=== PATIENT | male | born 1960 | race Caucasian/White ===

== ENCOUNTER 2018-02-12 07:06 | Emergency (ER) | payer OTHER ==
[~2018-02-12] VITALS: Ht 167.6 cm; Wt 76.6 kg
[~2018-02-12 07:06] MED LIST: AMLO-150 PO; AMOX-291 PO; AMOX1TAB64 PO; BUPR100T11 PO; CYCL-259 PO; GABA-827 PO; HYDR50TA13 PO; MELO15TA24 PO; MELO7.5T31 PO; METH500T7 PO; METO25TA35 PO; NICO-486 TD; OMEP-110 PO; PRED5TAB PO; RISP1TAB45 PO; RISP2TAB35 PO; RISP4TAB2 PO; SERT50TA5 PO; SILD100T PO; TRAM50TA2 PO; TRAZ150T62 PO
[2018-02-12] MEDS ORDERED: ALBUTEROL/IPRATROPIUM 2.5MG/0.5MG, 3 ML NPPB ONE (07:30)
[2018-02-12] MEDS ORDERED: ALBUTEROL/IPRATROPIUM 2.5MG/0.5MG, 3 ML ONE (07:45)
[2018-02-12 08:17] VITALS: BP 141/90
== END 2018-02-12 08:19 | disposition home or self-care (01) ==
LOC: ED 07:33
DX: J44.1 Chronic obstructive pulmonary disease with (acute) exacerbation (principal); J06.9 Acute upper respiratory infection, unspecified
CPT/HCPCS: 71046; 93005; 94640; 99283; J7512; J7620

== ENCOUNTER 2018-03-20 19:07 | Emergency (ER) | payer OTHER ==
[~2018-03-20] VITALS: Ht 167.6 cm; Wt 70.0 kg
[~2018-03-20 19:07] MED LIST changes: +SERT50TA28 PO; -SERT50TA5 PO
--- NOTE | 2018-03-20 19:15 | NUR ---
PT PRESENTS TO ED C/O NVDx3 DAYS. STATES "HOT AND COLD" INTERMITTENTx1 WEEK. UNKNOWN FEVER AT HOME. DENIES TAKING MEDICATION. STATES PRODUCTIVE COUGH AT HOME W/ YELLOW PHLEGM. CP WORSENING W/ COUGH "THROUGH MY WHOLE CHEST." SHARP PAIN PRESENT. DENIES CARDIAC HX. SPOUSE STATES "HE ATE RAW PORK 2 DAYS AGO HE PROBABLY HAS FOOD POISONING." ALL MONITORING APPLIED. PT MILDLY TACHYCARDIC. CALL LIGHT WITHIN REACH.
[2018-03-20] MEDS ORDERED: ACETAMINOPHEN 325 MG TABLET ONE (19:46)
[2018-03-20] MEDS ORDERED: ACETAMINOPHEN 325 MG TABLET PO ONE (20:00)
[2018-03-20] MEDS ORDERED: SODIUM CHLORIDE FLUSH 10ML SYR IVF ONE (20:00)
[2018-03-20 20:10] VITALS: BP 118/70
[2018-03-20 20:14] LABS: BASOPHILS # (AUTO) 0.06 x10^3/uL (0-0.1); BASOPHILS % (AUTO) 1 % (0-1); EOSINOPHILS # (AUTO) 0.15 x10^3/uL (0-0.4); EOSINOPHILS % (AUTO) 1 % (1-7); LYMPHOCYTES # (AUTO) 1.77 x10^3/uL (1-3.4); LYMPHOCYTES % (AUTO) 14 % (22-44); MD NO; MEAN CORPUSCULAR HEMOGLOBIN 31.1 pg (27.5-34.5); MEAN CORPUSCULAR HGB CONC 34.2 g/dL (33.2-36.2); MEAN PLATELET VOLUME 8.3 fL (7.4-10.4); MONOCYTES # (AUTO) 0.92 x10^3/uL (0.2-0.8); MONOCYTES % (AUTO) 7 % (2-9); NEUTROPHILS # (AUTO) 10.03 x10^3/uL (1.8-6.8); NEUTROPHILS % (AUTO) 78 % (42-75); PLATELET COUNT 291 x10^3/uL (130-400); RED BLOOD COUNT 5.33 x10^6/uL (4.38-5.82); RED CELL DISTRIBUTION WIDTH 13.3 % (9.4-14.8)
[2018-03-20 20:22] LABS: ALBUMIN 3.7 g/dL (3.4-5.0); ANION GAP 8 mmol/L (5-15); CALCIUM 9.1 mg/dL (8.5-10.1); CHLORIDE 113 mmol/L (98-107)
--- NOTE | 2018-03-20 20:25 | NUR ---
NO IMMEDIATE NEEDS FROM PT. CALL LIGHT WITHIN REACH. AWAITING INFLUENZA RESULTS.
[2018-03-20 20:28] LABS: ALANINE AMINOTRANSFERASE 32 U/L (12-78); ALKALINE PHOSPHATASE 75 U/L (45-117); BILIRUBIN,TOTAL 0.9 mg/dL (0.2-1.0); CREATININE 1.03 mg/dL (0.7-1.3); TOTAL PROTEIN 7.6 g/dL (6.4-8.2); TROPONIN I < 0.015 ng/mL (0.000-0.045)
[2018-03-20 20:28] LABS: RAPID INFLUENZA A Negative (Negative); RAPID INFLUENZA B Negative (Negative)
--- NOTE | 2018-03-20 21:02 | NUR ---
PT STATES WANTING TO LEAVE NOW. "I THINK MY IS CHEATING ON ME. I DONT CARE ABOUT ANYTHING ELSE RIGHT NOW." MD AWARE. PT EDUCATED, PT STILL WANTING TO LEAVE AMA. AMA SIGNED AND PLACED ON CHART.
== END 2018-03-20 21:03 | disposition home or self-care (01) ==
LOC: ED 19:30
DX: J06.9 Acute upper respiratory infection, unspecified (principal); F17.200 Nicotine dependence, unspecified, uncomplicated
CPT/HCPCS: 36415; 71046; 80053; 84484; 85025; 87400; 93005; 99284

== ENCOUNTER 2018-04-21 10:29 | Emergency (ER) | payer MEDICARE ==
[~2018-04-21] VITALS: Ht 167.6 cm; Wt 73.9 kg
[2018-04-21 10:49] VITALS: BP 116/77
== END 2018-04-21 11:41 | disposition left against medical advice (07) ==
LOC: ED 11:35
DX: F15.10 Other stimulant abuse, uncomplicated (principal)
CPT/HCPCS: 99283

== ENCOUNTER 2020-10-13 20:20 | Inpatient (IN) | payer MEDICARE, OTHER ==
[~2020-10-13] VITALS: Ht 167.6 cm; Wt 78.5 kg
[~2020-10-13 20:20] MED LIST changes: -CYCL-259 PO; +CYCL10TA2 PO; -HYDR50TA13 PO; +HYDR50TA99 PO; +METH-639 PO; -METH500T7 PO; -RISP4TAB2 PO; +RISP4TAB66 PO
[2020-10-13] MEDS ORDERED: SODIUM CHLORIDE FLUSH 10ML SYR IVF ONE (20:30)
--- NOTE | 2020-10-13 20:32 | NUR ---
Pt brought in by EMS from the [facility] c/o acute onset shortness of breath, near syncope, and etoh. Pt celebrating his birthday, states he drank close to a bottle of liqour. Became short of breath, used rescue albuterol inhaler w/ no relief. Also became diaphoretic, denied chest pain. Has a hx of COPD non oxygen depenadant. Pt alert and oriented x4 upon arrival. Placed on 2L by EMS for comfort. Pt has RA sats 88% upon arrival. Placed back on 2L by RN for comfort. Pt vitals stable. 18G LAC established by EMS. No meds or other interventions performed. Pt fully vaccinated against COVID.
--- NOTE | 2020-10-13 21:01 | NUR ---
pt had labs drawn, and ambulated steady to restroom for urine sample
[2020-10-13 21:10] LABS: BASOPHILS % (AUTO) 0 % (0-1); EOSINOPHILS % (AUTO) 1 % (1-7); LYMPHOCYTES % (AUTO) 15 % (22-44); MEAN CORPUSCULAR HEMOGLOBIN 30.6 pg (27.5-34.5); MEAN CORPUSCULAR HGB CONC 33.5 g/dL (33.2-36.2); MEAN PLATELET VOLUME 8.2 fL (7.4-10.4); MONOCYTES % (AUTO) 7 % (2-9); NEUTROPHILS % (AUTO) 78 % (42-75); PLATELET COUNT 296 x10^3/uL (130-400); RED CELL DISTRIBUTION WIDTH 13.3 % (9.4-14.8)
--- NOTE | 2020-10-13 21:10 | NUR ---
PT BECAME SOB WHILE AMBULATING TO RESTROOM, STATES UNABLE TO GIVE URINE SAMPLE AT THIS TIME
[2020-10-13 21:19] LABS: ANION GAP 4 mmol/L (5-15); CALCIUM 8.8 mg/dL (8.5-10.1); CHLORIDE 107 mmol/L (98-107); CREATININE 1.21 mg/dL (0.7-1.3)
[2020-10-13 21:20] LABS: ALANINE AMINOTRANSFERASE 42 U/L (12-78); ALBUMIN 3.1 g/dL (3.4-5.0)
[2020-10-13] MEDS ORDERED: ALBUTEROL/IPRATROPIUM 2.5MG/0.5MG, 3 ML ONE (21:20)
[2020-10-13 21:24] LABS: ALKALINE PHOSPHATASE 72 U/L (45-117); BILIRUBIN,TOTAL 0.4 mg/dL (0.2-1.0); TOTAL PROTEIN 7.2 g/dL (6.4-8.2); TROPONIN I < 0.015 ng/mL (0.000-0.045)
[2020-10-13] MEDS ORDERED: OMNIPAQUE 350 MG/ML, 75ML BOTTLE ONE (23:23)
--- NOTE | 2020-10-13 23:30 | NUR ---
PT ATTEMPTED TO LEAVE AMA EARLIER. PT WAS WALKING AROUND HALLS AND STATED HE NEEDS TO GO. IV TAKEN OUT BY OTHER RN BUT PT MADE HIS WAY BACK TO THE ROOM. EDUCAED PT ON UNCETAINTY OF DISPO AND IMPORTANCE OF WAITING FOR CTA RESULTS. PT AGREEABLE TO STAY AT THIS TIME. NEW PIV PLACED. PT RESTING IN [facility], AWAITING CTA RESULTS
[2020-10-14] MEDS ORDERED: FUROSEMIDE 20 MG/2 ML IV ONE
[2020-10-14] MEDS ORDERED: FUROSEMIDE 20 MG/2 ML ONE (00:27)
[2020-10-14] MEDS ORDERED: DEXTROSE 4 GM TAB.CHEW PO PRN (00:30)
[2020-10-14] MEDS ORDERED: OXYcodone IR 5MG TABLET PO PRN (00:30)
[2020-10-14] MEDS ORDERED: LORazepam 2 MG/ML, 1ML IV PRN ×2 (00:30)
[2020-10-14] MEDS ORDERED: LORazepam 0.5MG TABLET PO PRN (00:30)
[2020-10-14] MEDS ORDERED: POLYETHYLENE GLYCOL 17 GM PACKET PO PRN (00:30)
[2020-10-14] MEDS ORDERED: THIAMINE 200 MG in DEXTROSE 5% 50 ML IVPB ONE (00:30)
[2020-10-14] MEDS ORDERED: ACETAMINOPHEN 325 MG TABLET PO PRN (00:30)
[2020-10-14] MEDS ORDERED: GLUCAGON 1 MG IM PRN (00:30)
[2020-10-14] MEDS ORDERED: ONDANSETRON 2MG/ML, 2ML IVPush PRN (00:30)
[2020-10-14] MEDS ORDERED: LORazepam 1MG TABLET PO PRN (00:30)
[2020-10-14] MEDS ORDERED: MELATONIN 5 MG TABLET PO PRN (00:30)
[2020-10-14] MEDS ORDERED: ENOXAPARIN 40 MG/0.4 ML SQ SCH (00:30)
[2020-10-14] MEDS ORDERED: LABETALOL 5MG/ML, 20ML IVPush PRN (00:30)
[2020-10-14] MEDS ORDERED: DEXTROSE 50%, 50ML SYRINGE IVPush PRN (00:30)
--- NOTE | 2020-10-14 01:05 | NUR ---
report recieved from Alyssa BAÑUELOS
--- NOTE | 2020-10-14 01:48 | NUR ---
report given to juan augustine
[2020-10-14 02:11] LABS: TROPONIN I < 0.015 ng/mL (0.000-0.045)
[2020-10-14 02:40] LABS: FREE T4 (FREE THYROXINE) 0.92 ng/dL (0.76-1.46)
[2020-10-14 03:08] VITALS: BP 116/76
[2020-10-14] MEDS ORDERED: METF10007 PO (04:15)
[2020-10-14] MEDS ORDERED: ZOLP5TAB6 PO (04:15)
[2020-10-14 04:33] LABS: MICROSCOPIC NOT IND
[2020-10-14 04:46] LABS: AMPHETAMINE SCREEN, URINE Positive (Negative); BARBITURATE SCREEN, URINE Negative (Negative); BENZODIAZEPINE SCREEN, URINE Negative (Negative); CANNABINOID SCREEN, URINE Positive (Negative); COCAINE SCREEN, URINE Negative (Negative); METHADONE SCREEN, URINE Negative (Negative); OPIATE SCREEN, URINE Negative (Negative)
[2020-10-14] MEDS: INSULIN LISPRO 100 UNITS/ML, PEN SQ-INSULIN SCH ×4 (05:18→16:00)
[2020-10-14 06:33] LABS: BASOPHILS % (AUTO) 0 % (0-1); EOSINOPHILS % (AUTO) 1 % (1-7); LYMPHOCYTES % (AUTO) 20 % (22-44); MEAN CORPUSCULAR HEMOGLOBIN 31.4 pg (27.5-34.5); MEAN CORPUSCULAR HGB CONC 34.9 g/dL (33.2-36.2); MEAN PLATELET VOLUME 8.5 fL (7.4-10.4); MONOCYTES % (AUTO) 8 % (2-9); NEUTROPHILS % (AUTO) 71 % (42-75); PLATELET COUNT 275 x10^3/uL (130-400); RED BLOOD COUNT 4.51 x10^6/uL (4.38-5.82); RED CELL DISTRIBUTION WIDTH 13.2 % (9.4-14.8)
[2020-10-14 06:37] LABS: ANION GAP 5 mmol/L (5-15); CALCIUM 8.5 mg/dL (8.5-10.1); CHLORIDE 105 mmol/L (98-107); CREATININE 0.99 mg/dL (0.7-1.3)
[2020-10-14 06:41] LABS: TROPONIN I < 0.015 ng/mL (0.000-0.045)
[2020-10-14 08:09] VITALS: BP 118/79
[2020-10-14] MEDS ORDERED: MULTIVITAMINS/MINERALS TABLET PO SCH (09:00)
[2020-10-14] MEDS ORDERED: SODIUM CHLORIDE FLUSH 10ML SYR IVF SCH (09:00)
[2020-10-14] MEDS ORDERED: FUROSEMIDE 40 MG/4 ML IV ONE (11:30)
[2020-10-14] MEDS ORDERED: LORazepam 2 MG/ML, 1ML IVPush PRN (11:30)
[2020-10-14] MEDS ORDERED: POTASSIUM CHLORIDE 20 MEQ TAB.ER.PRT PO ONE (11:30)
[2020-10-14 12:17] VITALS: BP 108/68
[2020-10-14 12:20] VITALS: BP 108/68
[2020-10-14 16:35] VITALS: BP 116/81
[2020-10-14] MEDS ORDERED: POTASSIUM CHLORIDE 20 MEQ TAB.ER.PRT PO SCH (17:00)
== END 2020-10-14 16:55 | disposition home or self-care (01) | DRG 291 ==
LOC: ED 20:59 → EDIP 10-14 00:13 → 4WST 10-14 02:14
PROVIDERS: ADMIT Internal Medicine; ATTEND Internal Medicine
DX: I11.0 Hypertensive heart disease with heart failure (principal); G92 Toxic encephalopathy; J96.01 Acute respiratory failure with hypoxia; I50.43 Acute on chronic combined systolic (congestive) and diastolic (congestive) heart failure; D72.829 Elevated white blood cell count, unspecified; E03.9 Hypothyroidism, unspecified; F10.10 Alcohol abuse, uncomplicated; F17.210 Nicotine dependence, cigarettes, uncomplicated; F12.90 Cannabis use, unspecified, uncomplicated; F15.90 Other stimulant use, unspecified, uncomplicated; F20.9 Schizophrenia, unspecified; F31.9 Bipolar disorder, unspecified; I25.10 Atherosclerotic heart disease of native coronary artery without angina pectoris; J44.9 Chronic obstructive pulmonary disease, unspecified; E11.9 Type 2 diabetes mellitus without complications; Z20.822 Contact with and (suspected) exposure to COVID-19; Z91.19 Patient's noncompliance with other medical treatment and regimen
CPT/HCPCS: 36415; 71045; 71275; 80048; 80053; 80307; 80320; 81003; 82728; 82962; 83036; 83615; 83880; 84439; 84443; 84484; 85025; 85379; 93005; 93306; 93356; 96374; 99291; G0378; J1650; J1940; J3411; Q9967; U0005; G0480; J1815; U0003

== ENCOUNTER 2020-11-14 09:55 | Inpatient (IN) | payer OTHER ==
[~2020-11-14] VITALS: Ht 167.6 cm; Wt 73.3 kg
[~2020-11-14 09:55] MED LIST changes: +METF10007 PO; +ZOLP5TAB6 PO
[2020-11-14] MEDS ORDERED: SODIUM CHLORIDE FLUSH 10ML SYR IVF ONE (10:00)
[2020-11-14] MEDS ORDERED: ASPIRIN 81 MG TABLET CHEW PO ONE (10:00)
[2020-11-14] MEDS ORDERED: NITROGLYCERIN SINGLE TAB 0.4 MG SL PRN (10:00)
--- NOTE | 2020-11-14 10:14 | NUR ---
PT BIB EMS, C/O CP AND DIFFICULTY BREATHING SINCE THIS MORNING AT 7AM. EMS GAVE 1 SL TAB NITRO THAT PT STATES DID HELP WITH THE CP. PT HAS HX OF CHF. PT ON 4LPM O2 VIA NC. PT SITTING IN GURNEY, RESPONDS APPROPRIATELY BUT IS DELAYED. PT CONNECTED TO ALL MONITORS. EKG COMPLETED IN ROOM AND MD BEDSIDE FOR ASSESSMENT.
[2020-11-14] MEDS ORDERED: ASPIRIN 81 MG TABLET CHEW ONE (10:20)
[2020-11-14] MEDS ORDERED: PLEASE ENTER HEIGHT AND WEIGHT MC SCH (10:30)
[2020-11-14 10:37] LABS: ALBUMIN 3.2 g/dL (3.4-5.0); ANION GAP 4 mmol/L (5-15); CALCIUM 8.8 mg/dL (8.5-10.1); CHLORIDE 108 mmol/L (98-107)
[2020-11-14 10:42] LABS: CREATININE 1.26 mg/dL (0.7-1.3); TROPONIN I 0.089 ng/mL (0.000-0.045)
[2020-11-14 10:43] LABS: BASOPHILS % (AUTO) 1 % (0-1); EOSINOPHILS % (AUTO) 1 % (1-7); LYMPHOCYTES % (AUTO) 11 % (22-44); MEAN CORPUSCULAR HEMOGLOBIN 30.9 pg (27.5-34.5); MEAN CORPUSCULAR HGB CONC 33.9 g/dL (33.2-36.2); MONOCYTES % (AUTO) 5 % (2-9); NEUTROPHILS % (AUTO) 83 % (42-75); PLATELET COUNT 247 x10^3/uL (130-400); RED BLOOD COUNT 4.53 x10^6/uL (4.38-5.82); RED CELL DISTRIBUTION WIDTH 13.3 % (9.4-14.8)
--- NOTE | 2020-11-14 11:39 | NUR ---
PT RESTING ON BED COMFORTABLY. BP HAS COME DOWN 10 POINTS. PT USING EXTRA EFFORT FOR RESPERATIONS.
--- NOTE | 2020-11-14 11:45 | NUR ---
REPOSITIONED PT AND REASSESSED V/S BP IMPROVED TO 97/65. BACK TO NEAR BASELINE.
[2020-11-14] MEDS ORDERED: SODIUM CHLORIDE FLUSH 10ML SYR IVF PRN (12:00)
--- NOTE | 2020-11-14 12:16 | NUR ---
THROUGHPUT RN: PT WITH [facility] [employer] [place] [employer]. [facility] CALLED, SPOKE WITH CARLOS IN TRANSFER CENTER, DENIED PT "WE ARE NOT CONTRACTED WITH THAT INSURANCE." [facility] CALLED, SPOKE TO [facility] WHO DENIED PT "WE DO NOT HAVE ANY BEDS TO TAKE THIS PT." CARD TELE BED REQUESTED PER MD ORDER. ESTHETIC DERMATOLOGIST AND ADMITTING NOTIFIED/AWARE AT TIME OF ADMIT. PSN FORM COMPLETED AND FAXED TO [facility] PER REQUEST.
[2020-11-14] MEDS ORDERED: BACLOFEN 10 MG TABLET PO PRN (12:30)
[2020-11-14] MEDS ORDERED: BUTALB/APAP/CAFFEINE 50MG/325MG/40MG PO PRN ×2 (12:30)
[2020-11-14] MEDS ORDERED: ONDANSETRON 2MG/ML, 2ML IVPush PRN (12:30)
[2020-11-14] MEDS ORDERED: ACETAMINOPHEN 325 MG TABLET PO PRN (12:30)
[2020-11-14] MEDS ORDERED: ONDANSETRON ODT 4 MG PO PRN (12:30)
[2020-11-14] MEDS ORDERED: ENOXAPARIN 40 MG/0.4 ML ONE (12:43)
[2020-11-14] MEDS ORDERED: FUROSEMIDE 40 MG/4 ML ONE (12:44)
[2020-11-14] MEDS: ENOXAPARIN 40 MG/0.4 ML SQ SCH (12:47)
[2020-11-14] MEDS: FUROSEMIDE 40 MG/4 ML IV SCH ×2 (12:47→17:30)
--- NOTE | 2020-11-14 12:54 | NUR ---
MEDICATED PT PER ORDERS. PT RESTING ON GURNEY. V/S STABLE AT THIS TIME. PROVIDED PT WITH URINAL.
--- NOTE | 2020-11-14 12:59 | NUR ---
WHILE IN PT ROOM, HE BECAME SOB AND COULD NOT CATCH HIS BREATH, COMPLAINED OF CHEST PAIN. PT WAS ABLE TO CATCH HIS BREATH BUT IS NOW PALE AND DIAPHORETIC. PT IS VERY LETHARGIC AND FALLS ASLEEP RAPIDLY. V/S STABLE AT THIS TIME.
--- NOTE | 2020-11-14 13:54 | NUR ---
PT GOT OUT OF BED. TOOK OFF MONITORING EQUIPMENT AND O2. PT EDUCATED ON PROPER USE OF CALL TO LIGHT AND TO USE IT IF HE NEEDS HELP WITH ANYTHING. PT MOVED TO HOSPITAL BED. CARDIAC DIET TRAY ORDERED
[2020-11-14] MEDS ORDERED: NITROGLYCERIN SINGLE TAB 0.4 MG SL ONE (14:12)
--- NOTE | 2020-11-14 14:20 | NUR ---
PT HAD ANOTHER EPISODE OF SEVERE CHEST PAIN AND SOB. CALMED PT AND COACHED ON BREATHING. CALLD AND LEFT MESSAGE WITH MD TO CONSIDER ADDITIONAL OPTIONS. PT MEDICATED WITH NITRO PER ORDER. PT RESTING ON GURNEY.
--- NOTE | 2020-11-14 14:20 | NUR ---
PT CAME OF CHEST PAIN. PT DIAPHORETIC. MEDICATED PER APR. CALLED TO MAKE AWARE - LEFT VOICEMAIL.
--- NOTE | 2020-11-14 14:27 | NUR ---
PT REPORTS HIS CP HAS IMPROVED AFTER NITRO
[2020-11-14 17:16] VITALS: BP 103/75
[2020-11-14 18:00] LABS: TROPONIN I 0.117 ng/mL (0.000-0.045)
[2020-11-14] MEDS ORDERED: CHLORDIAZEPOXIDE 25 MG CAPSULE PO PRN (18:00)
[2020-11-14] MEDS ORDERED: CHLORDIAZEPOXIDE 10 MG CAPSULE PO PRN (18:00)
[2020-11-14] MEDS ORDERED: LORazepam 2 MG/ML, 1ML IV PRN ×4 (18:00)
[2020-11-14 20:00] VITALS: BP 109/74
[2020-11-14] MEDS ORDERED: MELATONIN 5 MG TABLET PO SCH (21:00)
[2020-11-14] MEDS: LORazepam 2 MG/ML, 1ML IV PRN (21:18)
[2020-11-14] MEDS ORDERED: NITROGLYCERIN 0.4 MG/SPRAY SL PRN (21:30)
[2020-11-14 23:17] LABS: TROPONIN I 0.094 ng/mL (0.000-0.045)
[2020-11-15 02:00] VITALS: BP 114/77
[2020-11-15 05:39] LABS: BASOPHILS % (AUTO) 1 % (0-1); EOSINOPHILS % (AUTO) 2 % (1-7); LYMPHOCYTES % (AUTO) 21 % (22-44); MEAN CORPUSCULAR HGB CONC 34.3 g/dL (33.2-36.2); MEAN PLATELET VOLUME 8.4 fL (7.4-10.4); MONOCYTES % (AUTO) 8 % (2-9); NEUTROPHILS % (AUTO) 69 % (42-75); PLATELET COUNT 224 x10^3/uL (130-400); RED BLOOD COUNT 4.78 x10^6/uL (4.38-5.82); RED CELL DISTRIBUTION WIDTH 13.3 % (9.4-14.8)
[2020-11-15 05:42] LABS: ALANINE AMINOTRANSFERASE 83 U/L (12-78); ANION GAP 6 mmol/L (5-15); CALCIUM 8.8 mg/dL (8.5-10.1); CHLORIDE 106 mmol/L (98-107); CREATININE 1.05 mg/dL (0.7-1.3)
[2020-11-15 05:46] LABS: ALKALINE PHOSPHATASE 85 U/L (45-117); TOTAL PROTEIN 6.9 g/dL (6.4-8.2)
[2020-11-15] MEDS ORDERED: REGADENOSON 0.4 MG/5 ML SYRINGE ONE (08:49)
[2020-11-15] MEDS ORDERED: SENNA/DOCUSATE TABLET PO SCH (09:00)
[2020-11-15] MEDS ORDERED: MAGNESIUM SULFATE PMX 2GM/50ML 50 ML IV ONE (10:30)
[2020-11-15] MEDS: FUROSEMIDE 40 MG/4 ML IV SCH (10:37)
[2020-11-15 10:39] VITALS: BP 125/82
[2020-11-15] MEDS ORDERED: POTASSIUM CHLORIDE 20 MEQ TAB.ER.PRT ONE (10:39)
[2020-11-15] MEDS ORDERED: POTASSIUM CHLORIDE 20 MEQ TAB.ER.PRT PO ONE (10:49)
[2020-11-15] MEDS: LORazepam 2 MG/ML, 1ML IV PRN (11:48)
[2020-11-15] MEDS: ENOXAPARIN 40 MG/0.4 ML SQ SCH (12:30)
[2020-11-15] MEDS ORDERED: LISI5TAB7 PO (13:24)
[2020-11-15] MEDS ORDERED: SPIR25TA5 PO (13:26)
[2020-11-15] MEDS ORDERED: CARV3.1212 PO (13:26)
== END 2020-11-15 14:00 | disposition home or self-care (01) | DRG 293 ==
LOC: ED 12:07 → EDIP 12:16 → 5SO 16:34
PROVIDERS: ADMIT Family Medicine; ATTEND Family Medicine
DX: I11.0 Hypertensive heart disease with heart failure (principal); F12.10 Cannabis abuse, uncomplicated; F17.210 Nicotine dependence, cigarettes, uncomplicated; F15.90 Other stimulant use, unspecified, uncomplicated; F31.9 Bipolar disorder, unspecified; G89.29 Other chronic pain; I50.43 Acute on chronic combined systolic (congestive) and diastolic (congestive) heart failure; I25.10 Atherosclerotic heart disease of native coronary artery without angina pectoris; F20.9 Schizophrenia, unspecified; D72.829 Elevated white blood cell count, unspecified; J44.9 Chronic obstructive pulmonary disease, unspecified; M54.9 Dorsalgia, unspecified; Z88.8 Allergy status to other drugs, medicaments and biological substances
CPT/HCPCS: 36415; 71045; 78452; 80048; 80053; 82040; 82962; 83735; 83880; 84100; 84484; 85025; 93005; 93017; 99285; G0378; J1650; J1940; J2785; A9502; J2060; J3475